=== PATIENT | male | born 1965 | race Caucasian/White ===

== ENCOUNTER → 2016-09-26 | Outpatient (CLI) | payer OTHER ==
[~2016-09-26] MED LIST: CYCL-375 PO; NO ROUTINE MEDS
--- NOTE | 2016-09-26 17:24 | DI ---
Indication: ITS.REASON: N43.40 Spermatocele of epididymis, unspecified PROCEDURE: US TESTICULAR: Encounter: Initial Comparison: None FINDINGS: Both testicles are present in expected location. The testicles demonstrate a homogenous echotexture without intratesticular mass. The right testicle measures 4.7 x 2.4 x 3.7 cm, and the left testicle measures 4.5 x 2.6 x 3.3 cm. Color Doppler imaging demonstrates symmetric, arterial flow throughout both testicles. Normal pulsed Doppler arterial and venous waveforms were obtained from each testicle. Right epididymis shows a 1 cm hypoechoic benign-appearing lesion with some internal vascularity. This could represent a septation within the epididymis or thrombosed vein. Moderate right hydrocele. Large left spermatocele. IMPRESSION: Moderate right hydrocele and large left spermatocele. No evidence of testicular mass or torsion. .
== END ==
LOC: IMA 15:24
PROVIDERS: ATTEND Internal Medicine
DX: N43.40 Spermatocele of epididymis, unspecified (principal); N43.3 Hydrocele, unspecified